=== PATIENT | female | born 1960 | race Caucasian/White ===

== ENCOUNTER 2020-06-08 13:20 | Outpatient (CLI) | payer MEDICAID ==
--- NOTE | 2020-06-14 17:45 | Consultation ---
DATE OF CONSULTATION: 06/08/2020 CHIEF COMPLAINT: Referral for colonoscopy. PAST MEDICAL HISTORY: 1. Colon polyps. 2. Hypercholesteremia. 3. Diverticulosis. 4. Asthma. PAST SURGICAL HISTORY: Nose surgeries, sinus surgery, left eye surgery. MEDICATIONS: Please see medication reconciliation list. ALLERGIES: No known drug allergies. FAMILY HISTORY: Sister had breast cancer. SOCIAL HISTORY: The patient denies any tobacco, alcohol, or drug abuse. REVIEW OF SYSTEMS: Positive for weight gain. PHYSICAL EXAMINATION: VITAL SIGNS: Temperature 98.2. Vital signs stable. Weight is 210. HEENT: Normocephalic and atraumatic. Sclerae anicteric. NECK: Supple. No evidence of obvious lymphadenopathy. CARDIOVASCULAR: Regular rate and rhythm. Plus S1, S2. LUNGS: Clear to auscultation bilaterally. ABDOMEN: Positive bowel sounds. Soft and nontender. No rebound. No guarding. No peritoneal sign. EXTREMITIES: No cyanosis, no clubbing, no edema. ASSESSMENT AND PLAN: This is a 60-year-old female with past medical history of colonic polyps, needs repeat colonoscopy. Plan to schedule her when authorization is obtained. Jaylen Mensah M.D. DR: Blanco JOB#: [id number] CC:
== END 2020-06-08 15:20 | disposition home or self-care (01) ==
LOC: PAN 13:20
DX: Z00.00 Encounter for general adult medical examination without abnormal findings (principal)
CPT/HCPCS: G0463